=== PATIENT | male | born 1980 | race Caucasian/White ===

== ENCOUNTER → 2017-07-09 | Outpatient (CLI) | payer BC ==
--- NOTE | 2017-07-10 04:28 | REP ---
Clinical: Cervicalgia. Technique: AP, lateral, flexion/extension, bilateral oblique and open mouth views of the cervical spine. Findings: Moderate focal degenerative disc osteophyte complex at the C6-7 level includes anterior osteophyte, endplate sclerosis and disc space narrowing. Alignment and lordosis maintained. No acute fracture / compression injury or subluxation. Oblique views demonstrate patent neural foramen. Open mouth view demonstrates normal C1-C2 articulation and odontoid process. Impression: Focal degenerative disc osteophyte complex at C6-7. Otherwise normal cervical spine series. Signed by Kale Puente MD 07/10/2017 04:19 A
--- NOTE | 2017-07-10 04:34 | REP ---
Clinical: Pain. Technique: Internal rotation, external rotation, and Y view of the left shoulder. Findings: Subtle cortical irregularity involving the acromioclavicular joint along with subtle blunting to the glenoid rim suggest mild age-related degenerative change. No acute fracture or dislocation. Subacromial space is normal. No periarticular calcifications are identified. Impression: Mild degenerative changes as noted above. Signed by Kale Puente MD 07/10/2017 04:25 A
== END ==
LOC: M ADAMS 15:50
PROVIDERS: ATTEND Physician Assistant Medical
DX: M54.2 Cervicalgia (principal)